=== PATIENT | female | born 1950 | race Caucasian/White ===

== ENCOUNTER 2022-06-15 07:23 | Emergency (ER) | payer OTHER ==
[2022-06-15] MEDS ORDERED: Iopamidol 370 76% 100 ML VIAL FS ONE (07:24)
[2022-06-15 08:34] LABS: #Basophils 0.1 thou/uL (0.0-0.2); #Eosinphils 0.2 thou/uL (0.0-0.7); #Lymphocytes 1.2 thou/uL (1.20-3.40); #Monocytes 0.6 thou/uL (0.11-0.59); %Eosinophils 2.6 % (0.0-10.0); %Lymphocytes 12.6 % (21.0-51.0); %Monocytes 6.9 % (0.0-10.0); %Neutrophils 76.8 % (42.0-75.0); Hemoglobin 14.3 g/dL (12.0-16.0); Mean Corpuscular HGB CONC 33.8 g/dL (32.0-36.0); Mean Corpuscular Hemoglobin 31.2 pg (27.0-31.0); Mean Corpuscular Volume 92.5 fL (78.0-98.0); Mean Platelet Volume 6.9 fL (7.4-10.4); Platelet Count 274 thou/uL (130-400); RBC Distribution Width 11.8 % (11.5-14.5); Red Blood Cell (RBC) Count 4.56 mill/uL (4.20-5.40); White Blood Cell (WBC) Count 9.1 thou/uL (4.8-10.8)
[2022-06-15] MEDS ORDERED: Morphine 4 MG/ML VIAL ONE ×2 (08:37→12:05)
[2022-06-15] MEDS ORDERED: Ondansetron PF 4 MG/2 ML Vial ONE (08:37)
[2022-06-15 08:43] LABS: ALT (SGPT) 26 U/L (8-55); AST (SGOT) 30 U/L (5-34); Albumin 4.1 g/dL (3.4-4.8); Alkaline Phosphatase 81 U/L (40-110); Anion Gap 14 mmol/L (10-20); BUN (Urea Nitrogen) 16 mg/dL (9.8-20.1); Bilirubin, Total 0.5 mg/dL (0.2-1.2); Calc. Creatinine Clearance 0 mL/min (70-130); Calcium 10.6 mg/dL (7.8-10.44); Carbon Dioxide 26 mmol/L (23-31); Chloride 100 mmol/L (98-107); Estimated GFR 60; Globulin 2.8 g/dL (2.4-3.5); Glucose 230 mg/dL (80-115); Lipase 26 U/L (8-78); Potassium 4.2 mmol/L (3.5-5.1); Protein, Total 6.9 g/dL (5.8-8.1); Sodium 136 mmol/L (136-145)
[2022-06-15 09:43] LABS: Bilirubin Negative (Negative); Blood, Urine Negative (Negative); Clarity Clear (Clear); Glucose, Urine (Dipstick) Negative (Negative); Ketone, Urine Negative (Negative); Leukocyte Negative (Negative); Nitrite Negative (Negative); Protein, Urine (Dipstick) Negative (Neg-Trace); Specific Gravity, Urine 1.015 (1.005-1.030)
== END 2022-06-15 12:25 | disposition short-term general hospital (02) ==
LOC: BURERS 07:23
DX: K56.609 Unspecified intestinal obstruction, unspecified as to partial versus complete obstruction (principal)
CPT/HCPCS: 74177; 80053; 81003; 83605; 83690; 85025; 93005; 96361; 96374; 96375; 96376; J2270; J2405; Q9967